=== PATIENT | male | born 1970 | race Caucasian/White ===

== ENCOUNTER 2018-01-11 22:10 | Emergency (ER) | payer MEDICARE, BC ==
[~2018-01-11] VITALS: Ht 167.6 cm; Wt 104.3 kg
[~2018-01-11 22:10] MED LIST: ATOR20TA PO; FLUT1DIS3 IH; GLIM4TAB PO; GLIM4TAB2 PO; GLIP5TAB13 PO; HYDR-3024 PO; HYDR1CAP PO; LIRA0.6P SQ; LISI-603 PO; METF10002 PO; ONDA4TAB11 PO; ONDA4TAB8 PO; PANT40TA4 PO; ZOLP10TA2 PO
--- NOTE | 2018-01-11 23:07 | NUR ---
PT TAKEN INTO TRIAGE AND WILL BE SEEN BY TIFFANY HA.
[2018-01-12] MEDS ORDERED: methylPREDNISolone SOD SUCC 125 MG/2ML VIAL IV ONE
[2018-01-12] MEDS ORDERED: ASPIRIN 81 MG TAB.CHEW PO ONE
[2018-01-12] MEDS ORDERED: IPRATROPIUM NEB FS 0.5 MG/2.5 ML AMPUL.NEB NEB ONE
--- NOTE | 2018-01-12 00:01 | NUR ---
LABS DRAWN SENT TO LAB. RADIOLOGY AT BEDSIDE FOR CXR
--- NOTE | 2018-01-12 00:01 | NUR ---
PT BB SELF FROM HOME WITH C/O "COUGH X3 WEEKS; FINISHED TAKING AZITHROMAX." PT AAOX4. RESP EVEN AND UNLABORED. MILD WHEEZES AUSCULATED. SKIN WNL AND WARM TO TOUCH. NO S/S OF ACUTE DISTRESS NOTED. PT PLACED ON MONITOR AND POX. VSS. AWAITING MD FOR EVAL.
[2018-01-12 00:07] LABS: BASOPHILS # (AUTO) 0.1 /CMM (0.0-0.2); BASOPHILS % (AUTO) 0.5 % (0.0-2.0); EOSINOPHILS # (AUTO) 0.3 /CMM (0.0-0.7); EOSINOPHILS % (AUTO) 2.4 % (0.0-6.0); HEMATOCRIT 36 % (39-51); HEMOGLOBIN 11.9 g/dL (13.5-17.5); LYMPHOCYTES # (AUTO) 4.2 /CMM (0.8-4.8); MEAN CORPUSCULAR HEMOGLOBIN 27 PG (26.0-33.0); MEAN CORPUSCULAR HGB CONC 33 g/dl (31.0-36.0); MEAN CORPUSCULAR VOLUME 82 fL (80-96); MONOCYTES # (AUTO) 0.5 /CMM (0.1-1.30); MONOCYTES % (AUTO) 4.6 % (2.0-12.0); NEUTROPHILS # (AUTO) 6.5 /CMM (1.8-8.9); NEUTROPHILS % (AUTO) 56.5 % (43.0-81.0); PLATELET COUNT (AUTO) 263 /CMM (150-450); RDW COEFFICIENT OF VARIATION 14.7 (11.5-15.0); RED BLOOD CELL COUNT(AUTO) 4.39 MIL/uL (4.5-6.0); WHITE BLOOD COUNT (AUTO) 11.6 K/uL (4.3-11.0)
[2018-01-12] MEDS ORDERED: ASPIRIN 81 MG TAB.CHEW ONE ×2 (00:15→00:21)
[2018-01-12] MEDS ORDERED: methylPREDNISolone SOD SUCC 125 MG/2ML VIAL ONE (00:15)
[2018-01-12 00:16] LABS: CALCIUM, SERUM 8.7 mg/dL (8.5-10.1); CREATININE 1.4 mg/dL (0.6-1.3); POTASSIUM 3.5 mmol/L (3.5-5.1)
[2018-01-12 00:24] LABS: TROPONIN I 0.035 ng/mL (0.00-0.056)
[2018-01-12] MEDS ORDERED: IPRATROPIUM NEB FS 0.5 MG/2.5 ML AMPUL.NEB ONE (00:28)
[2018-01-12] MEDS ORDERED: ALBUTEROL FS 2.5 MG/3 ML VIAL.NEB ONE ×2 (00:28→01:19)
--- NOTE | 2018-01-12 00:30 | NUR ---
RT BEDSIDE FOR BREATHING TREATMENT
--- NOTE | 2018-01-12 01:13 | NUR ---
MD BEDSIDE WITH PT
[2018-01-12] MEDS ORDERED: ALBUTEROL FS 2.5 MG/3 ML VIAL.NEB NEB ONE ×2 (01:30)
[2018-01-12] MEDS ORDERED: IV NS 0.9% 1,000 ML BAG IV ONE (01:30)
--- NOTE | 2018-01-12 02:35 | NUR ---
Patient is resting comfortably in bed with eyes closed. Easily aroused. VSS
[2018-01-12] MEDS ORDERED: ALBUTEROL FS 2.5 MG/0.5 ML VIAL.NEB ONE (02:48)
[2018-01-12] MEDS ORDERED: ALBUTEROL FS 2.5 MG/0.5 ML VIAL.NEB NEB ONE (03:00)
--- NOTE | 2018-01-12 03:34 | NUR ---
Patient discharged to home in stable condition. Written and verbal after care instructions given. Patient verbalizes understanding of instruction.IV removed. Catheter intact and site benign. Pressure and 4x4 applied to site. No bleeding noted. VSS upon discharge. pt ambulated with steady gait out of ER.
[2018-01-12 03:35] VITALS: BP 113/71
== END 2018-01-12 03:37 | disposition home or self-care (01) ==
LOC: ER 22:10
DX: J40 Bronchitis, not specified as acute or chronic (principal); E11.9 Type 2 diabetes mellitus without complications; I10 Essential (primary) hypertension; J43.9 Emphysema, unspecified; I51.7 Cardiomegaly; D64.9 Anemia, unspecified; E66.9 Obesity, unspecified; Z68.39 Body mass index [BMI] 39.0-39.9, adult; R07.2 Precordial pain; F32.9 Major depressive disorder, single episode, unspecified; N28.9 Disorder of kidney and ureter, unspecified; Z87.891 Personal history of nicotine dependence
CPT/HCPCS: 36415; 71045-TC; 80048-TC; 82962-TC; 83880; 84484-TC; 85025-TC; A4606; J2930; J7030; Z7610

== ENCOUNTER 2019-05-11 22:54 | Emergency (ER) | payer OTHER, BC ==
[~2019-05-11] VITALS: Ht 172.7 cm; Wt 115.2 kg
[~2019-05-11 22:54] MED LIST changes: +METF-442 PO; -METF10002 PO
[2019-05-11 23:12] VITALS: BP 151/79
--- NOTE | 2019-05-12 00:23 | NUR ---
SUZANNE MAHER AT BEDSIDE TO MAICOL NIELSON.
[2019-05-12] MEDS ORDERED: ALBUTEROL FS 2.5 MG/3 ML VIAL.NEB CONTNEB ONE (00:30)
[2019-05-12] MEDS ORDERED: IPRATROPIUM NEB FS 0.5 MG/2.5 ML AMPUL.NEB NEB ONE (00:30)
[2019-05-12] MEDS ORDERED: ALBUTEROL FS 2.5 MG/3 ML VIAL.NEB ONE (00:34)
== END 2019-05-12 02:42 | disposition home or self-care (01) ==
LOC: ER 23:00
DX: J40 Bronchitis, not specified as acute or chronic (principal); F41.9 Anxiety disorder, unspecified; F32.9 Major depressive disorder, single episode, unspecified; E78.5 Hyperlipidemia, unspecified; E11.9 Type 2 diabetes mellitus without complications; I10 Essential (primary) hypertension; Z98.890 Other specified postprocedural states; Z79.84 Long term (current) use of oral hypoglycemic drugs; Z79.899 Other long term (current) drug therapy
CPT/HCPCS: 71045-TC; 82962-TC